=== PATIENT | male | born 1945 | race Caucasian/White ===

== ENCOUNTER 2017-02-01 20:13 | Emergency (ER) | payer MEDICARE, OTHER ==
[~2017-02-01] VITALS: Ht 177.8 cm; Wt 216.0 kg
[~2017-02-01 20:13] MED LIST: 1-ME1LIQ PO; AMIT10 PO; ASPI-94 PO; ATOR20TA42 PO; DUONI NEB; FLUO-1 PO; FURO20TA PO; GABA300 PO; LANTUS2P SC; NOVOINJ SQ; OMEP20TA PO; TAMS0.4C67 PO; WAL-10TA2 PO
[2017-02-01 20:37] VITALS: BP 103/65; PULSE 90; RESP 18; TEMP 99; O2SAT 98
[2017-02-01] MEDS ORDERED: DIAZ5TAB PO (20:59)
[2017-02-01] MEDS ORDERED: ALBU.5I NEB (20:59)
[2017-02-01] MEDS ORDERED: SOLOSTAR SQ (20:59)
[2017-02-01] MEDS ORDERED: ATOR1TAB18 PO (20:59)
[2017-02-01] MEDS ORDERED: GABA600T PO (20:59)
[2017-02-01] MEDS ORDERED: AMLO10TA2 PO (20:59)
[2017-02-01] MEDS ORDERED: NOVOINJ3 SQ (20:59)
[2017-02-01] MEDS ORDERED: GABA100C4 PO (20:59)
[2017-02-01] MEDS ORDERED: [UNRECOGNIZED DRUG - CODE] TOPICAL (20:59)
[2017-02-01] MEDS ORDERED: TAMS0.4C4 PO (20:59)
[2017-02-01] MEDS ORDERED: FLUO40CA PO (20:59)
[2017-02-01] MEDS ORDERED: FURO1TAB60 PO (20:59)
[2017-02-01] MEDS ORDERED: AMIT50TA3 PO (20:59)
[2017-02-01] MEDS ORDERED: ASPI1TAB69 PO (20:59)
[2017-02-01] MEDS ORDERED: OMEP20TA PO (20:59)
--- NOTE | 2017-02-01 21:21 | PD ---
HPI Chief Complaint: Cold / Flu Symptoms Time Seen by Provider: 21:16 Travel History International Travel<30 days: No Contact w/Intl Traveler<30days: No Traveled to known affect area: No History of Present Illness HPI Patient is a 71-year-old male presenting to the emergency department for evaluation of cough, nasal congestion. Patient states his symptoms started on Monday, he reports a history of COPD, asbestosis, pulmonary nodules. He denies any fever, chills, nausea, vomiting, chest pain, shortness of breath. He also reports an injury to his left fifth finger that occurred 2 days ago. Patient states he cut himself and was wondering if he needed stitches. 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) Cardiovascular Problems: Yes (HX OF CHF 2008) High Cholesterol: Yes Congestive Heart Failure: Yes COPD: Yes Cerebrovascular Accident: No Diabetes: Yes (TYPE II) Patient Takes Glucophage: No Diminished Hearing: Yes (HEARING AID BOTH EARS.) Endocrine: Yes Gastrointestinal Disorders: Yes GERD: Yes Genitourinary: Yes Headaches: Yes Hiatal Hernia: No Hypertension: Yes Immune Disorder: No Medical other: Yes (GERD, LOWER BACK PROBLEMS, ARTHRITIS,DIVERTICULITIS) Musculoskeletal: Yes Neurologic: Yes Psychiatric: No Reproductive: No Respiratory: Yes (COPD) Immunizations Current: Yes Migraines: No Seizures: No Thyroid Disease: No Tetanus Vaccination: < 5 Years Influenza Vaccination: Yes Past Surgical History Cholecystectomy: Yes Eye Surgery: Yes (BILATERAL CATARACT SURGERY) Genitourinary Surgery: Yes (R NEPHRECTOMY FOR RENAL CELL CA) Thoracic Surgery: Yes (LUNG NODULES REMOVED BIA LUNGS) Other Surgery: Yes (LOWER LUMBAR SURGERY) Social History Alcohol Use: No (QUIT 1971) Tobacco Use: No (QUIT 1997) Substance Use: No Allergies-Medications (Allergen,Severity, Reaction): Coded Allergies: Phenergan (Verified Allergy, Severe, "CODED", 02/01/17) Oxycodone (Verified Adverse Reaction, Severe, CONFUSION, 02/01/17) Morphine (Verified Adverse Reaction, Intermediate, NAUSEA, 02/01/17) Reported Meds & Prescriptions Reported Meds & Active Scripts Active Reported Tamsulosin (Tamsulosin HCl) 0.4 Mg Cap 0.4 Mg PO HS Diazepam 5 Mg Tab 5 Mg PO HS PRN Urea Topical (Urea) 40 % Alma Delia 20 % TOPICAL BID Omeprazole 20 Mg Tab 20 Mg PO DAILY [Solostar] 45 Units SQ BID Novolog Flexpen Inj (Insulin Aspart) 300 Unit/3 Ml Pen 7 Units SQ TID Gabapentin 600 Mg Tab 600 Mg PO BID Gabapentin 100 Mg Cap 100 Mg PO BID Lasix (Furosemide) 40 Mg Tab 40 Mg PO DAILY Fluoxetine (Fluoxetine HCl) 40 Mg Cap 40 Cap PO DAILY Atorvastatin (Atorvastatin Calcium) 80 Mg Tab 80 Mg PO HS Aspirin 81 Mg Tabdr 81 Mg PO DAILY Amlodipine (Amlodipine Besylate) 10 Mg Tab 10 Mg PO DAILY Amitriptyline (Amitriptyline HCl) 50 Mg Tab 50 Mg PO HS Albuterol Neb (Albuterol Sulfate) 2.5 Mg/0.5 Ml Neb 2.5 Mg NEB Q6HR NEB PRN Note: The Albuterol Sulfate Inhalation Solution is concentrated and must be diluted. Read complete instructions carefully before using. Review of Systems Except as stated in HPI: all other systems reviewed are Neg General / Constitutional: No: Fever, Chills HENT: No: Headaches Cardiovascular: No: Chest Pain or Discomfort Respiratory: Positive: Cough, No: Shortness of Breath, Wheezing Gastrointestinal: No: Nausea, Abdominal Pain Genitourinary: No: Dysuria Musculoskeletal: No: Myalgias Skin: Positive Other (superficial laceration) Physical Exam Narrative GENERAL: Well-developed, well-nourished, alert elderly gentleman. Resting comfortably in no acute distress. SKIN: Focused skin assessment warm/dry. Superficial skin avulsion dorsal aspect of the right fifth finger HEAD: Atraumatic. Normocephalic. EYES: Pupils equal and round. No scleral icterus. No injection or drainage. ENT: No nasal bleeding or discharge. Mucous membranes pink and moist. NECK: Trachea midline. No JVD. CARDIOVASCULAR: Regular rate and rhythm. No murmur appreciated. RESPIRATORY: No accessory muscle use. Clear to auscultation. Breath sounds equal bilaterally. GASTROINTESTINAL: Abdomen soft, non-tender, nondistended. Hepatic and splenic margins not palpable. MUSCULOSKELETAL: No obvious deformities. No clubbing. No cyanosis. No edema. NEUROLOGICAL: Awake and alert. No obvious cranial nerve deficits. Motor grossly within normal limits. Normal speech. PSYCHIATRIC: Appropriate mood and affect; insight and judgment normal. Data Data Last Documented VS Vital Signs Date Time Temp Pulse Resp B/P Pulse Ox O2 Delivery O2 Flow Rate FiO2 02/01/17 20:46 Room Air 02/01/17 20:37 99.0 90 18 103/65 98 Orders Chest, Pa & Lat (02/01/17 ) [facility] Medical Decision Making Medical Screen Exam Complete: Yes Emergency Medical Condition: Yes Interpretation(s) Vital Signs Date Time Temp Pulse Resp B/P Pulse Ox O2 Delivery O2 Flow Rate FiO2 02/01/17 20:46 Room Air 02/01/17 20:37 99.0 90 18 103/65 98 Differential Diagnosis Pneumonia versus bronchitis versus viral URI versus other Narrative Course Patient is a 71-year-old male presenting to the emergency room for evaluation of cough, nasal congestion. Patient's past medical history significant for COPD , asbestosis. Chest x-ray ordered and pending. Patient's vital signs are stable, he is well oxygenated on room air. No abnormal breath sounds are noted. Chest x-ray shows blunting of the left costophrenic recess consistent with pleural thickening and/or tiny pleural effusion. Patient will be placed on antibiotics, he is encouraged to continue his inhaler at home. Discussed case with my attending physician. He is encouraged to follow-up with his primary care provider. Additionally patient was encouraged to return to emergency department for any new or worsening symptoms. Patient verbalized understanding of these instructions. Patient is stable for discharge. Diagnosis Primary Impression: Pleural thickening Additional Impressions: Cough COPD exacerbation Referrals: Primary Care Physician 2 days Patient Instructions: Acute Cough (GEN), General Instructions Additional Instructions: Follow-up with your primary doctor Take medications as directed Continue albuterol inhaler at home as previously prescribed Return to emergency department for any new or worsening symptoms Med/Other Pt SpecificInfo: Prescription(s) given Scripts Azithromycin 250 Mg [id number] Mg PO DIRECTED #6 TAB Ref 0 Take 2 tabs (500 mg) on day 1 then 1 tab daily x 4 days. Prov:Lupis Gilman 02/01/17 Disposition: 01 DISCHARGE HOME Condition: Stable Lupis Gilman Feb 01, 2017 21:21
--- NOTE | 2017-02-01 21:42 | RADHPO ---
EXAM DATE/TIME: 02/01/2017 21:22 [facility] COMPARISON: No previous studies available for comparison. INDICATIONS : Cough, chest congestion, shortness of breath for 3 days MEDICAL HISTORY : Hypertension. SURGICAL HISTORY : Nodules removed from left lung ENCOUNTER: Initial ACUITY: 3 days PAIN SCORE: 0/10 LOCATION: Bilateral chest FINDINGS: There is blunting of the left costophrenic recess consistent with small pleural effusion and/or pleur al thickening. The heart is normal. The pulmonary vascular pattern is normal. The right lung is cl ear. CONCLUSION: 1. Blunting of the left costophrenic recess consistent with pleural thickening and/or tiny pleural e ffusion. Roderick Zaragoza MD on February 01, 2017 at 21:37 Board Certified Radiologist. This report was verified electronically.
[2017-02-01] MEDS ORDERED: AZIT250T3 PO (22:21)
== END 2017-02-01 22:43 | disposition home or self-care (01) ==
LOC: PHEFT 20:13
DX: J92.9 Pleural plaque without asbestos (principal); J44.1 Chronic obstructive pulmonary disease with (acute) exacerbation; I50.9 Heart failure, unspecified; E11.9 Type 2 diabetes mellitus without complications; K21.9 Gastro-esophageal reflux disease without esophagitis; I10 Essential (primary) hypertension; M19.90 Unspecified osteoarthritis, unspecified site; Z87.891 Personal history of nicotine dependence; Z79.4 Long term (current) use of insulin
CPT/HCPCS: 71020; 99283

== ENCOUNTER 2017-05-01 20:24 | Emergency (ER) | payer MEDICARE, OTHER ==
[~2017-05-01] VITALS: Ht 177.8 cm; Wt 90.6 kg
[~2017-05-01 20:24] MED LIST changes: -1-ME1LIQ PO; +ALBU.5I NEB; -AMIT10 PO; +AMIT50TA3 PO; +AMLO10TA2 PO; -ASPI-94 PO; +ASPI1TAB69 PO; +ATOR1TAB18 PO; -ATOR20TA42 PO; +AZIT250T3 PO; +DIAZ5TAB PO; -DUONI NEB; -FLUO-1 PO; +FLUO40CA PO; +FURO1TAB60 PO; -FURO20TA PO; +GABA100C4 PO; -GABA300 PO; +GABA600T PO; -LANTUS2P SC; -NOVOINJ SQ; +NOVOINJ3 SQ; +SOLOSTAR SQ; +TAMS0.4C4 PO; -TAMS0.4C67 PO; -WAL-10TA2 PO; +[UNRECOGNIZED DRUG - CODE] TOPICAL
[2017-05-01 20:30] VITALS: BP 136/67; PULSE 78; RESP 18; TEMP 97.9; O2SAT 97
[2017-05-01] MEDS ORDERED: GLIP10TA6 PO (20:43)
[2017-05-01] MEDS ORDERED: METF1000 PO (20:43)
--- NOTE | 2017-05-01 21:51 | RADRPT ---
EXAM DATE/TIME: 05/01/2017 21:24 [facility] COMPARISON: No previous studies available for comparison. INDICATIONS : Trauma, fall. MEDICAL HISTORY : None. SURGICAL HISTORY : Total knee replacement, right. ENCOUNTER: Initial ACUITY: 1 day PAIN SCORE: 5/10 LOCATION: Right knee. FINDINGS: The patient is status post arthroplasty. The femoral and tibial components are intact and in normal a lignment. There are postoperative changes involving the patella. There is no acute fracture or malali gnment. CONCLUSION: Negative trauma study. Freeman Devlin MD on May 01, 2017 at 21:48 Board Certified Radiologist. This report was verified electronically.
--- NOTE | 2017-05-01 22:00 | PD ---
HPI Chief Complaint: Fall Time Seen by Provider: 20:50 Travel History International Travel<30 days: No Contact w/Intl Traveler<30days: No Traveled to known affect area: No History of Present Illness HPI 72-year-old male presents emergency department for evaluation of right shoulder and right knee pain status post fall yesterday. Patient reports she tripped over some uneven ground while outside falling forward onto her right flexed knee. He reports his right arm was extended outwards when he fell causing pain within the right shoulder. Patient has a history of chronic right shoulder pain and rotator cuff injury. He denies head injury or loss of consciousness. Patient is not anticoagulated. Patient denies headache, visual changes, chest pain, shortness breath, abdominal pain. Patient reports pain only within the right shoulder and right knee which is constant, worse with movement, relieved with rest, severity 5 out of 10. 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) Cardiovascular Problems: Yes (HX OF CHF 2008) High Cholesterol: Yes Congestive Heart Failure: Yes COPD: Yes Cerebrovascular Accident: Yes Diabetes: Yes Patient Takes Glucophage: Yes Diminished Hearing: Yes (HEARING AID BOTH EARS.) Endocrine: Yes Gastrointestinal Disorders: Yes GERD: Yes Genitourinary: Yes Headaches: Yes Hiatal Hernia: No Hypertension: Yes Immune Disorder: No Medical other: Yes (GERD, LOWER BACK PROBLEMS, ARTHRITIS,DIVERTICULITIS) Musculoskeletal: Yes Neurologic: Yes Psychiatric: No Reproductive: No Respiratory: Yes (COPD) Immunizations Current: Yes Migraines: No Seizures: No Thyroid Disease: No Tetanus Vaccination: < 5 Years Influenza Vaccination: Yes Past Surgical History Cholecystectomy: Yes Eye Surgery: Yes (BILATERAL CATARACT SURGERY) Genitourinary Surgery: Yes (R NEPHRECTOMY FOR RENAL CELL CA) Thoracic Surgery: Yes (LUNG NODULES REMOVED BIA LUNGS) Other Surgery: Yes (LOWER LUMBAR SURGERY) Social History Alcohol Use: No (QUIT 1971) Tobacco Use: No (QUIT 1997) Substance Use: No Allergies-Medications (Allergen,Severity, Reaction): Coded Allergies: Phenergan (Verified Allergy, Severe, "CODED", 05/01/17) Oxycodone (Verified Adverse Reaction, Severe, CONFUSION, 05/01/17) Morphine (Verified Adverse Reaction, Intermediate, NAUSEA, 05/01/17) Reported Meds & Prescriptions Reported Meds & Active Scripts Active Reported Metformin (Metformin HCl) 1,000 Mg Tab 1,000 Mg PO DAILY With a meal Glipizide 10 Mg Tab 10 Mg PO BIDAC Take 30 minutes before a meal Omeprazole 20 Mg Tab 20 Mg PO DAILY Gabapentin 600 Mg Tab 600 Mg PO BID Gabapentin 100 Mg Cap 100 Mg PO BID Lasix (Furosemide) 40 Mg Tab 40 Mg PO DAILY Fluoxetine (Fluoxetine HCl) 40 Mg Cap 40 Cap PO DAILY Atorvastatin (Atorvastatin Calcium) 80 Mg Tab 80 Mg PO HS Amlodipine (Amlodipine Besylate) 10 Mg Tab 10 Mg PO DAILY Amitriptyline (Amitriptyline HCl) 50 Mg Tab 50 Mg PO HS Albuterol Neb (Albuterol Sulfate) 2.5 Mg/0.5 Ml Neb 2.5 Mg NEB Q6HR NEB PRN Note: The Albuterol Sulfate Inhalation Solution is concentrated and must be diluted. Read complete instructions carefully before using. Physical Exam Narrative GENERAL: Alert, well-appearing, well-nourished elderly male SKIN: Focused skin assessment warm/dry. No ecchymosis. Small abrasion to the right anterior knee HEAD: Atraumatic. Normocephalic. EYES: Pupils equal and round. No scleral icterus. No injection or drainage. ENT: No nasal bleeding or discharge. Mucous membranes pink and moist. NECK: Trachea midline. No JVD. CARDIOVASCULAR: Regular rate and rhythm. No murmur appreciated. RESPIRATORY: No accessory muscle use. Clear to auscultation. Breath sounds equal bilaterally. GASTROINTESTINAL: Abdomen soft, non-tender, nondistended. Hepatic and splenic margins not palpable. MUSCULOSKELETAL: No obvious deformities. No clubbing. No cyanosis. No edema. Right knee: Point tenderness to the anterior aspect, no joint effusion. Joint is stable. Right shoulder: Joint tender in the posterior aspect. No deformity. Positive Neer's test. Extremities neurovascularly intact. NEUROLOGICAL: Awake and alert. No obvious cranial nerve deficits. Motor grossly within normal limits. Normal speech. PSYCHIATRIC: Appropriate mood and affect; insight and judgment normal. Data Data Last Documented VS Vital Signs Date Time Temp Pulse Resp B/P Pulse Ox O2 Delivery O2 Flow Rate FiO2 05/01/17 20:30 97.9 78 18 136/67 97 Orders Shoulder, Complete (>2vws) (05/01/17 ) Knee, Complete (4vws) (05/01/17 ) ^ Sling (05/01/17 22:41) [facility] Medical Decision Making Medical Screen Exam Complete: Yes Emergency Medical Condition: Yes Differential Diagnosis Right shoulder pain- rotator cuff injury versus contusion versus versus fracture , right knee pain-contusion versus fracture Narrative Course 72-year-old male presents emergency department for evaluation of right shoulder pain and knee pain status post fall yesterday. He denies head injury or loss of consciousness. On exam patient has point tenderness of the anterior aspect of the knee and posterior aspect of the shoulder. X-rays pending Right shoulder x-ray: Negative for fracture or dislocation Right knee x-ray: Negative for fracture Diagnostic findings discussed with patient. Right arm placed in sling for comfort. Patient agrees to follow-up with with Genesis schroeder this week. Diagnosis Primary Impression: Right shoulder pain Qualified Code: M25.511 - Acute pain of right shoulder Additional Impression: Contusion of right knee Qualified Code: S80.01XA - Contusion of right knee, initial encounter Referrals: Orthopedist Additional Instructions: With a sling as needed for comfort. Take [id number] Motrin and/or Tylenol as needed for pain. Ice and elevate right lower extremity. Disposition: 01 DISCHARGE HOME Condition: Stable Meera Hernandez May 01, 2017 22:00
--- NOTE | 2017-05-01 22:32 | RADRPT ---
EXAM DATE/TIME: 05/01/2017 21:20 [facility] COMPARISON: No previous studies available for comparison. INDICATIONS : Trauma, fall. MEDICAL HISTORY : None. SURGICAL HISTORY : None. ENCOUNTER: Initial ACUITY: 1 day PAIN SCORE: 4/10 LOCATION: Right shoulder. FINDINGS: Multiple view examination of the right shoulder demonstrates no evidence of fracture or dislocation. The glenohumeral and acromioclavicular joints are maintained. There is normal range of motion betwe en internal and external rotation. Bony mineralization is normal. CONCLUSION: Negative trauma study. Freeman Devlin MD on May 01, 2017 at 22:28 Board Certified Radiologist. This report was verified electronically.
== END 2017-05-01 22:45 | disposition home or self-care (01) ==
LOC: PHEFT 20:24
DX: M25.511 Pain in right shoulder (principal); S80.01XA Contusion of right knee, initial encounter; W01.0XXA Fall on same level from slipping, tripping and stumbling without subsequent striking against object, initial encounter; I50.9 Heart failure, unspecified; E78.00 Pure hypercholesterolemia, unspecified; E11.9 Type 2 diabetes mellitus without complications; J44.9 Chronic obstructive pulmonary disease, unspecified; Z86.73 Personal history of transient ischemic attack (TIA), and cerebral infarction without residual deficits; I10 Essential (primary) hypertension; Z85.528 Personal history of other malignant neoplasm of kidney
CPT/HCPCS: 73030; 73564; 99284

== ENCOUNTER → 2017-09-21 | Outpatient (CLI) | payer MEDICARE, OTHER ==
[~2017-09-21] MED LIST changes: -ASPI1TAB69 PO; -ATOR1TAB18 PO; +ATOR80TA45 PO; -AZIT250T3 PO; -DIAZ5TAB PO; +GLIP10TA6 PO; +METF1000 PO; -NOVOINJ3 SQ; -OMEP20TA PO; +OMEP20TA93 PO; -SOLOSTAR SQ; -TAMS0.4C4 PO; -[UNRECOGNIZED DRUG - CODE] TOPICAL
[2017-09-21 15:10] LABS: AUTOMATED NEUTROPHIL # 3.5 TH/MM3 (1.8-7.7); BASOPHIL % 0.5 % (0.0-2.0); EOSINOPHIL # 0.2 TH/MM3 (0-0.4); EOSINOPHIL % 3.1 % (0.0-4.0); HEMATOCRIT 38.1 % (39.0-51.0); HEMO FLAGS DIFF FINAL; LYMPH % 29.9 % (9.0-44.0); LYMPHOCYTE # 1.8 TH/MM3 (1.0-4.8); MEAN CORPUSCULAR HEMOGLOBIN 29.3 PG (27.0-34.0); MEAN CORPUSCULAR HGB CONC 34.1 % (32.0-36.0); MONO % 8.5 % (0.0-8.0); PLATELET COUNT 195 TH/MM3 (150-450); RED BLOOD COUNT 4.44 MIL/MM3 (4.50-5.90); RED CELL DISTRIBUTION WIDTH 13.4 % (11.6-17.2); WHITE BLOOD COUNT 6.1 TH/MM3 (4.0-11.0)
[2017-09-21 15:28] LABS: BICARBONATE 25.4 MEQ/L (21.0-32.0)
--- NOTE | 2017-09-22 17:58 | EKG ---
Date Performed: 09/21/2017 Time Performed: 15:35:34 PTAGE: 72 years EKG: Sinus rhythm WITH FIRST DEGREE AV BLOCK MODERATE INTRAVENTRICULAR CONDUCTION DELAY MODERATE ST DEPRESSION ABNORMA L ECG Compared to PREVIOUS TRACING , NM interval is slightly more prolonged. PREVIOUS TRACIN01/11/2014 0 1.38 DOCTOR: Jacob Chavez Interpretating Date/Time 09/22/2017 17:56:58
== END ==
LOC: CLAB 14:38
PROVIDERS: ATTEND Orthopaedic Surgery Orthopaedic Surgery of the Spine
DX: Z01.812 Encounter for preprocedural laboratory examination (principal); Z01.810 Encounter for preprocedural cardiovascular examination; G56.01 Carpal tunnel syndrome, right upper limb
CPT/HCPCS: 36415; 80048; 85025; 93005

== ENCOUNTER 2018-04-17 11:27 | Day surgery (SDC) | payer MEDICARE, OTHER ==
[2018-04-17] MEDS ORDERED: POVIDONE IODINE 5% (ANTISEPSIS KIT) 4 APPLICATIONS EACH NARE SCH (12:00)
[2018-04-17] MEDS ORDERED: MUPIROCIN 2% OINT 1 APPLIC/GM SYR NASAL SCH (12:00)
[2018-04-17] MEDS ORDERED: CHLORHEXIDINE GLUCONATE 2 % 1 PACK (2 CLOTHS) TOPICAL SCH (12:00)
[2018-04-17] MEDS ORDERED: ceFAZolin 2 GM PREMIX 50 ML IV SCH (12:00)
[2018-04-17] MEDS ORDERED: VANCOMYCIN 1000 MG/NS 250 ML IV SCH ×2 (12:00)
[2018-04-17] MEDS ORDERED: MIDAZOLAM HCL 5 MG/ML VIAL (1 ML) ONE (12:05)
[2018-04-17] MEDS ORDERED: ECASA81 PO (12:06)
[2018-04-17] MEDS ORDERED: TAMS0.4C4 PO (12:06)
[2018-04-17] MEDS ORDERED: GLUC4CHW CHEW (12:06)
--- NOTE | 2018-04-17 15:00 | MR ---
cc: Radha Ramirez MD DATE: 04/17/2018 INDICATION: Syncope. PROCEDURE PERFORMED: 1. Placement of a Medtronic MRI compatible loop monitor. 2. Moderate sedation. EQUIPMENT USED: Medtronic Reveal LINQ MRI compatible loop monitor, serial number [id number]. MEDICATION: Versed IV, fentanyl IV, Ancef IV. DESCRIPTION OF THE PROCEDURE: After the patient was sedated, left chest was prepped and draped in usual sterile manner. Local anesthesia was applied. Medtronic Reveal LINQ MRI compatible monitor was placed without difficulties. R-wave was 0.78 millivolts. ASSESSMENT: Successful placement of Medtronic Reveal LINQ MRI compatible loop monitor. DISPOSITION: Mr. Ayon will continue his current medical program. We will initiate long-term monitoring of his device. I will see him back in followup in our office after discharge. Radha Ramirez MD OQ/TL , 02:26 PM , 03:00 PM MTDD
== END 2018-04-17 15:23 | disposition home or self-care (01) ==
LOC: HDIC 11:27 → HDOC 11:27
PROVIDERS: ATTEND Internal Medicine Interventional Cardiology
DX: R55 Syncope and collapse (principal); I20.9 Angina pectoris, unspecified; I11.0 Hypertensive heart disease with heart failure; I50.9 Heart failure, unspecified; E78.5 Hyperlipidemia, unspecified; K21.9 Gastro-esophageal reflux disease without esophagitis; N28.9 Disorder of kidney and ureter, unspecified; I63.9 Cerebral infarction, unspecified; J44.9 Chronic obstructive pulmonary disease, unspecified
CPT/HCPCS: 33282; 99152; C1764; J2250; J3010

== ENCOUNTER 2018-04-28 17:07 | Inpatient (IN) | payer MEDICARE, OTHER ==
[~2018-04-28] VITALS: Ht 177.8 cm; Wt 95.0 kg
[~2018-04-28 17:07] MED LIST changes: +ECASA81 PO; +GLUC4CHW CHEW; +TAMS0.4C4 PO
[2018-04-28 17:23] VITALS: BP 143/69; PULSE 75; RESP 18; TEMP 98.7; O2SAT 98
--- NOTE | 2018-04-28 17:26 | PD ---
HPI Chief Complaint: Dizziness Time Seen by Provider: 17:23 Travel History International Travel<30 days: No Contact w/Intl Traveler<30days: No Traveled to known affect area: No History of Present Illness HPI 73-year-old male with history of CHF, hypertension, COPD, chronic kidney disease , diabetes, presents emergency department for evaluation following a syncopal episode. Patient states that he was walking in a store today when his body begins to shake and he passes out. He then wakes up on the ground. Today he was assisted to the ground by people in the store. He states he had a very similar episode yesterday. Patient states that he has been having these episodes for quite some time, but more frequently over the last couple of weeks. He tells me yesterday he did strike his head but did not seek evaluation. He has been seen by Dr. white, wore a Holter monitor, and had a loop recorder placed 1 week ago. He tells me that he has been told to put the device over the loop recorder site when these events happen, however he has a difficult time doing this because he feels like he loses control over his body. Patient states he has no chest pain preceding this. He reports no nausea or vomiting. He has no focal deficits or weakness. Patient has no other symptoms to report at this time. 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) Cardiovascular Problems: Yes (HX OF CHF 2008) High Cholesterol: Yes Congestive Heart Failure: Yes COPD: Yes Cerebrovascular Accident: Yes Diabetes: Yes Diminished Hearing: Yes (HEARING AID BOTH EARS.) Endocrine: Yes Gastrointestinal Disorders: Yes GERD: Yes Genitourinary: Yes Headaches: Yes Hiatal Hernia: No Hypertension: Yes Immune Disorder: No Musculoskeletal: Yes Neurologic: Yes Psychiatric: No Reproductive: No Respiratory: Yes (COPD) Immunizations Current: Yes Migraines: No Seizures: No Thyroid Disease: No Past Surgical History Cholecystectomy: Yes Eye Surgery: Yes (BILATERAL CATARACT SURGERY) Genitourinary Surgery: Yes (R NEPHRECTOMY FOR RENAL CELL CA) Thoracic Surgery: Yes (LUNG NODULES REMOVED BIA LUNGS) Other Surgery: Yes (LOWER LUMBAR SURGERY) Social History Alcohol Use: No (QUIT 1971) Tobacco Use: No (QUIT 1997) Substance Use: No Allergies-Medications (Allergen,Severity, Reaction): Coded Allergies: promethazine (Unverified Allergy, Severe, "CODED", 04/28/18) oxycodone (Unverified Adverse Reaction, Severe, CONFUSION, 04/28/18) morphine (Unverified Adverse Reaction, Intermediate, NAUSEA, 04/28/18) Reported Meds & Prescriptions Reported Meds & Active Scripts Active Reported Jardiance (Empagliflozin) 25 Mg Tab 25 Mg PO DAILY Ventolin Hfa 18 GM Inh (Albuterol Sulfate) 90 Mcg/Act Aer 2 Puff INH Q6H PRN Tamsulosin (Tamsulosin HCl) 0.4 Mg Cap 0.8 Mg PO HS Glucose (Dextrose) 4 Gm Chew 4 Gm CHEW DIRECTED Aspirin DR (Aspirin) 81 Mg Tabdr 81 Mg PO DAILY Metformin (Metformin HCl) 1,000 Mg Tab 1,000 Mg PO DAILY With a meal Glipizide 10 Mg Tab 10 Mg PO BIDAC Take 30 minutes before a meal Omeprazole 20 Mg Tab 20 Mg PO DAILY Gabapentin 600 Mg Tab 600 Mg PO BID Gabapentin 100 Mg Cap 100 Mg PO BID Lasix (Furosemide) 40 Mg Tab 40 Mg PO DAILY Fluoxetine (Fluoxetine HCl) 40 Mg Cap 40 Cap PO DAILY Atorvastatin (Atorvastatin Calcium) 80 Mg Tab 80 Mg PO HS Amlodipine (Amlodipine Besylate) 10 Mg Tab 10 Mg PO DAILY Amitriptyline (Amitriptyline HCl) 50 Mg Tab 50 Mg PO HS Review of Systems Except as stated in HPI: all other systems reviewed are Neg Physical Exam Narrative GENERAL: Very pleasant, elderly male patient, hard of hearing, appears nontoxic and without distress. SKIN: Focused skin assessment warm/dry. Steri-Strip dressing in place over the left anterior chest. No erythema or edema. HEAD: Atraumatic. Normocephalic. EYES: Pupils equal and round. No scleral icterus. No injection or drainage. ENT: No nasal bleeding or discharge. Mucous membranes pink and moist. NECK: Trachea midline. No JVD. CARDIOVASCULAR: Regular rate and rhythm. 2/6 systolic murmur appreciated. RESPIRATORY: No accessory muscle use. Clear to auscultation. Breath sounds equal bilaterally. GASTROINTESTINAL: Abdomen soft, non-tender, nondistended. Hepatic and splenic margins not palpable. MUSCULOSKELETAL: No obvious deformities. No clubbing. No cyanosis. No edema. NEUROLOGICAL: Awake and alert. No obvious cranial nerve deficits. Motor grossly within normal limits. Normal speech. PSYCHIATRIC: Appropriate mood and affect; insight and judgment normal. Data Data Last Documented VS Vital Signs Date Time Temp Pulse Resp B/P (MAP) Pulse Ox O2 Delivery O2 Flow Rate FiO2 04/28/18 19:11 74 17 98 Room Air 04/28/18 19:10 111/84 (93) 04/28/18 17:23 98.7 Orders Orders Electrocardiogram (04/28/18 17:37) Complete Blood Count With Diff (04/28/18 17:37) Comprehensive Metabolic Panel (04/28/18 17:37) Magnesium (Mg) (04/28/18 17:37) Ckmb (Isoenzyme) Profile (04/28/18 17:37) Troponin I (04/28/18 17:37) Act Partial Throm Time (Ptt) (04/28/18 17:37) Prothrombin Time / Inr (Pt) (04/28/18 17:37) Urinalysis - C+S If Indicated (04/28/18 17:37) Chest, Single Ap (04/28/18 17:37) Ct Brain W/O Iv Contrast(Rout) (04/28/18 17:37) Ct Cerv Spine W/O Contrast (04/28/18 17:37) Ecg Monitoring (04/28/18 17:37) Iv Access Insert/Monitor (04/28/18 17:37) Oximetry (04/28/18 17:37) Sodium Chloride 0.9% Flush (Ns Flush) (04/28/18 17:45) CKMB (04/28/18 17:25) CKMB% (04/28/18 17:25) Admit Order (Ed Use Only) (04/28/18 21:34) Consult Cardiology (04/28/18 ) Labs Laboratory Tests Test 04/28/18 17:25 04/28/18 19:50 White Blood Count 6.8 TH/MM3 Red Blood Count 4.61 MIL/MM3 Hemoglobin 13.1 GM/DL Hematocrit 38.8 % Mean Corpuscular Volume 84.1 FL Mean Corpuscular Hemoglobin 28.3 PG Mean Corpuscular Hemoglobin Concent 33.7 % Red Cell Distribution Width 13.8 % Platelet Count 218 TH/MM3 Mean Platelet Volume 9.1 FL Neutrophils (%) (Auto) 69.3 % Lymphocytes (%) (Auto) 20.1 % Monocytes (%) (Auto) 8.8 % Eosinophils (%) (Auto) 1.3 % Basophils (%) (Auto) 0.5 % Neutrophils # (Auto) 4.7 TH/MM3 Lymphocytes # (Auto) 1.4 TH/MM3 Monocytes # (Auto) 0.6 TH/MM3 Eosinophils # (Auto) 0.1 TH/MM3 Basophils # (Auto) 0.0 TH/MM3 CBC Comment DIFF FINAL Differential Comment Prothrombin Time 10.8 SEC Prothromb Time International Ratio 1.1 RATIO Activated Partial Thromboplast Time 24.9 SEC Blood Urea Nitrogen 25 MG/DL Creatinine 1.82 MG/DL Random Glucose 149 MG/DL Total Protein 7.1 GM/DL Albumin 4.1 GM/DL Calcium Level 9.2 MG/DL Magnesium Level 2.3 MG/DL Alkaline Phosphatase 92 U/L Aspartate Amino Transf (AST/SGOT) 22 U/L Alanine Aminotransferase (ALT/SGPT) 28 U/L Total Bilirubin 0.5 MG/DL Sodium Level 137 MEQ/L Potassium Level 3.7 MEQ/L Chloride Level 100 MEQ/L Carbon Dioxide Level 25.6 MEQ/L Anion Gap 11 MEQ/L Estimat Glomerular Filtration Rate 36 ML/MIN Total Creatine Kinase 120 U/L Creatine Kinase MB 1.8 NG/ML Troponin I LESS THAN 0.02 NG/ML Urine Color YELLOW Urine Turbidity CLEAR Urine pH 6.0 Urine Specific [place] 1.008 Urine Protein NEG mg/dL Urine Glucose (UA) >=500 mg/dL Urine Ketones NEG mg/dL Urine Occult Blood NEG Urine Nitrite NEG Urine Bilirubin NEG Urine Urobilinogen LESS THAN 2 mg/dL Urine Leukocyte Esterase NEG Urine WBC LESS THAN 1 /hpf Urine Squamous Epithelial Cells <1 /hpf Microscopic Urinalysis Comment CULT NOT INDICATED MDM Medical Decision Making Medical Screen Exam Complete: Yes Emergency Medical Condition: Yes Medical Record Reviewed: Yes Differential Diagnosis Syncope versus near syncope versus electrolyte abnormality versus intracranial etiology versus arrhythmia Narrative Course 73-year-old male presents emergency department for evaluation following a syncopal episode. Patient reports several syncopal episodes over an extended amount of time however they have been happening more frequently. He has no obvious trauma. Laboratory Tests Test 04/28/18 17:25 04/28/18 19:50 White Blood Count 6.8 TH/MM3 Red Blood Count 4.61 MIL/MM3 Hemoglobin 13.1 GM/DL Hematocrit 38.8 % Mean Corpuscular Volume 84.1 FL Mean Corpuscular Hemoglobin 28.3 PG Mean Corpuscular Hemoglobin Concent 33.7 % Red Cell Distribution Width 13.8 % Platelet Count 218 TH/MM3 Mean Platelet Volume 9.1 FL Neutrophils (%) (Auto) 69.3 % Lymphocytes (%) (Auto) 20.1 % Monocytes (%) (Auto) 8.8 % Eosinophils (%) (Auto) 1.3 % Basophils (%) (Auto) 0.5 % Neutrophils # (Auto) 4.7 TH/MM3 Lymphocytes # (Auto) 1.4 TH/MM3 Monocytes # (Auto) 0.6 TH/MM3 Eosinophils # (Auto) 0.1 TH/MM3 Basophils # (Auto) 0.0 TH/MM3 CBC Comment DIFF FINAL Differential Comment Prothrombin Time 10.8 SEC Prothromb Time International Ratio 1.1 RATIO Activated Partial Thromboplast Time 24.9 SEC Blood Urea Nitrogen 25 MG/DL Creatinine 1.82 MG/DL Random Glucose 149 MG/DL Total Protein 7.1 GM/DL Albumin 4.1 GM/DL Calcium Level 9.2 MG/DL Magnesium Level 2.3 MG/DL Alkaline Phosphatase 92 U/L Aspartate Amino Transf (AST/SGOT) 22 U/L Alanine Aminotransferase (ALT/SGPT) 28 U/L Total Bilirubin 0.5 MG/DL Sodium Level 137 MEQ/L Potassium Level 3.7 MEQ/L Chloride Level 100 MEQ/L Carbon Dioxide Level 25.6 MEQ/L Anion Gap 11 MEQ/L Estimat Glomerular Filtration Rate 36 ML/MIN Total Creatine Kinase 120 U/L Creatine Kinase MB 1.8 NG/ML Troponin I LESS THAN 0.02 NG/ML Urine Color YELLOW Urine Turbidity CLEAR Urine pH 6.0 Urine Specific [place] 1.008 Urine Protein NEG mg/dL Urine Glucose (UA) >=500 mg/dL Urine Ketones NEG mg/dL Urine Occult Blood NEG Urine Nitrite NEG Urine Bilirubin NEG Urine Urobilinogen LESS THAN 2 mg/dL Urine Leukocyte Esterase NEG Urine WBC LESS THAN 1 /hpf Urine Squamous Epithelial Cells <1 /hpf Microscopic Urinalysis Comment CULT NOT INDICATED Last Impressions Head CT 04/28/181736 Signed Impressions: CONCLUSION: 1. No acute intracranial abnormalities. Chest X-Ray 04/28/181736 Signed Impressions: CONCLUSION: Scarring at the left costophrenic angle. No active disease. Cervical Spine CT 04/28/18 [id number] Signed Impressions: CONCLUSION: 1. No acute findings. Moderate degenerative disc disease. I discussed the patient my attending physician. I have also discussed the patient with Dr. Harvey, email specialist covering for Dr. white. He recommends having [employer] come and interrogate the loop recorder. This was completed and no cardiac events were reported. I discussed the patient with Dr. Mercer, the patient's primary care provider. He request the patient be admitted observation with telemetry and a consult placed to Dr. white. Patient is in agreement with this plan of care. Diagnosis Primary Impression: Syncope Qualified Codes: R55 - Syncope and collapse Admitting Information Admitting Physician Requests: Observation Condition: Stable Isabel El Apr 28, 2018 17:26
[2018-04-28] MEDS ORDERED: SODIUM CHLORIDE 0.9% FLUSH 10 ML FLUSH IVF PRN (17:45)
[2018-04-28 18:00] VITALS: BP 129/61; PULSE 70; RESP 18; O2SAT 95
[2018-04-28] MEDS ORDERED: EMPA1TAB3 PO (18:07)
[2018-04-28] MEDS ORDERED: VENTAER INH (18:07)
--- NOTE | 2018-04-28 18:21 | RADRPT ---
EXAM DATE: 04/28/2018 5:48 PM EDT AGE/SEX: 73 years / Male INDICATIONS: Short of breath, weakness and dizziness. CLINICAL DATA: This is the patient's initial encounter. Patient reports that signs and symptoms have been present for 1 day and indicates a pain score of 0/10. MEDICAL/SURGICAL HISTORY: None. Appendectomy. Left lung biopsy. COMPARISON: [facility], CHEST PA & LAT, 02/01/2017. . FINDINGS: No acute infiltrate. Stable chronic blunting left costophrenic angle. Loop recorder overlies left hem ithorax. No acute bony abnormality. CONCLUSION: Scarring at the left costophrenic angle. No active disease. Electronically signed by: Anirudh Mcghee MD 04/28/2018 6:19 PM EDT
--- NOTE | 2018-04-28 18:30 | RADRPT ---
EXAM DATE: 04/28/2018 6:21 PM EDT AGE/SEX: 73 years / Male INDICATIONS: Dizziness. CLINICAL DATA: This is the patient's initial encounter. Patient reports that signs and symptoms have been present for 1 day and indicates a pain score of 0/10. MEDICAL/SURGICAL HISTORY: Congestive heart failure. Gastroesophageal reflux disease. Hyperten neptali. Diabetes, Renal cell carcinoma Nephrectomy, right. Cholecystectomy. RADIATION DOSE: 21.13 CTDI (mGy) COMPARISON: No prior exams available for comparison. TECHNIQUE: Contiguous axial images were obtained using helical multirow detector technique. The vol umetric data was post-processed with multiplanar reconstruction in oblique axial, sagittal, and coron al planes. Using automated exposure control and adjustment of the mA and/or kV according to patient s ize, radiation dose was kept as low as reasonably achievable to obtain optimal diagnostic quality filomena ges. DICOM format image data is available electronically for review and comparison. FINDINGS: There is no acute fracture or spondylolisthesis. No prevertebral soft tissue swelling. No significant bony canal stenosis. CONCLUSION: 1. No acute findings. Moderate degenerative disc disease. Electronically signed by: Anirudh Mcghee MD 04/28/2018 6:29 PM EDT
--- NOTE | 2018-04-28 18:32 | RADRPT ---
EXAM DATE: 04/28/2018 6:12 PM EDT AGE/SEX: 73 years / Male INDICATIONS: Dizziness. CLINICAL DATA: This is the patient's initial encounter. Patient reports that signs and symptoms have been present for 1 day and indicates a pain score of 0/10. MEDICAL/SURGICAL HISTORY: Congestive heart failure. Hypertension. Gastroesophageal reflux disease . Diabetes, Renal cell carcinoma Nephrectomy, right. RADIATION DOSE: 56.35 CTDI (mGy) COMPARISON: [facility], CT BRAIN W/O CONTRAST, 03/16/2016. . TECHNIQUE: CT of the head without contrast. Using automated exposure control and adjustment of the mA and/or kV according to patient size, radiation dose was kept as low as reasonably achievable to ob tain optimal diagnostic quality images. DICOM format image data is available electronically for revi ew and comparison. FINDINGS: Cerebrum: The ventricles are normal for age. No evidence of midline shift, mass lesion, hemorrhage or acute infarction. No extraaxial fluid collections are seen. Posterior Fossa: The cerebellum and brainstem are intact. The 4th ventricle is midline. The cerebe llopontine angle is unremarkable. Extracranial: The visualized portion of the orbits is intact. Skull: The calvaria is intact. No evidence of skull fracture. CONCLUSION: 1. No acute intracranial abnormalities. Electronically signed by: Anirudh Mcghee MD 04/28/2018 6:31 PM EDT
[2018-04-28 19:02] LABS: AUTOMATED NEUTROPHIL # 4.7 TH/MM3 (1.8-7.7); BASOPHIL % 0.5 % (0.0-2.0); EOSINOPHIL # 0.1 TH/MM3 (0-0.4); EOSINOPHIL % 1.3 % (0.0-4.0); HEMATOCRIT 38.8 % (39.0-51.0); HEMOGLOBIN 13.1 GM/DL (13.0-17.0); LYMPH % 20.1 % (9.0-44.0); LYMPHOCYTE # 1.4 TH/MM3 (1.0-4.8); MEAN CELL VOLUME 84.1 FL (80.0-100.0); MEAN CORPUSCULAR HEMOGLOBIN 28.3 PG (27.0-34.0); MEAN CORPUSCULAR HGB CONC 33.7 % (32.0-36.0); MEAN PLATELET VOLUME 9.1 FL (7.0-11.0); MONO % 8.8 % (0.0-8.0); MONOCYTE # 0.6 TH/MM3 (0-0.9); NEUT % 69.3 % (16.0-70.0); PLATELET COUNT 218 TH/MM3 (150-450); RED BLOOD COUNT 4.61 MIL/MM3 (4.50-5.90); RED CELL DISTRIBUTION WIDTH 13.8 % (11.6-17.2); WHITE BLOOD COUNT 6.8 TH/MM3 (4.0-11.0)
[2018-04-28 19:10] VITALS: BP 111/84; PULSE 73; RESP 17; O2SAT 98
[2018-04-28 19:13] LABS: INTERNATIONAL NORMALIZED RATIO 1.1 RATIO; PROTHROMBIN TIME - PATIENT 10.8 SEC (9.8-11.6)
[2018-04-28 19:25] LABS: ALBUMIN 4.1 GM/DL (3.4-5.0); AST (GOT) 22 U/L (15-37); BICARBONATE 25.6 MEQ/L (21.0-32.0); BLOOD UREA NITROGEN 25 MG/DL (7-18); CALCIUM 9.2 MG/DL (8.5-10.1); CHLORIDE 100 MEQ/L (98-107); CREATININE 1.82 MG/DL (0.60-1.30); GLOMERULAR FILTRATION RATE 36 ML/MIN (>89); GLUCOSE,RANDOM 149 MG/DL (74-106); MAGNESIUM 2.3 MG/DL (1.5-2.5); SODIUM (NA) 137 MEQ/L (136-145)
[2018-04-28 19:27] LABS: ALT (GPT) 28 U/L (12-78)
[2018-04-28 19:30] LABS: ALKALINE PHOSPHATASE 92 U/L (45-117); TOTAL BILIRUBIN ADULT 0.5 MG/DL (0.2-1.0); TOTAL PROTEIN 7.1 GM/DL (6.4-8.2); TROPONIN I LESS THAN 0.02 NG/ML (0.02-0.05)
[2018-04-28 20:19] LABS: BILIRUBIN, URINE NEG (NEG); BLOOD, URINE NEG (NEG); GLUCOSE,URINE >=500 mg/dL (NEG); KETONE, URINE NEG (NEG); NITRITE,URINE NEG (NEG); SQUAMOUS EPITHELIAL CELL URINE <1 /hpf (0-5); URINE COLOR YELLOW (YELLW/STRAW); URINE LEUKOCYTE ESTERASE NEG (NEG)
[2018-04-28] MEDS ORDERED: DEXTROSE 4 GM CHEW SCH (22:15)
[2018-04-28] MEDS ORDERED: SODIUM CHLORIDE 0.9% FLUSH 10 ML FLUSH IV FLUSH PRN (22:15)
[2018-04-28] MEDS ORDERED: NALOXONE HCL 0.4 MG/ML AMP IV PUSH PRN (22:15)
[2018-04-28] MEDS ORDERED: ALBUTEROL SULFATE 90 MCG/ACT HFA 8 GM INHALER INH PRN (22:15)
[2018-04-28] MEDS ORDERED: [UNRECOGNIZED DRUG - OTHER] CHEW SCH (22:15)
[2018-04-29] VITALS (7 sets, daily range): BP systolic 125–161; BP diastolic 62–71; PULSE 62–74; RESP 18; TEMP 97.5–98.2; O2SAT 94–96
[2018-04-29] MEDS: glipiZIDE 10 MG TAB PO SCH ×2 (06:35→17:12)
[2018-04-29 08:01] LABS: AUTOMATED NEUTROPHIL # 3.1 TH/MM3 (1.8-7.7); BASOPHIL % 0.8 % (0.0-2.0); EOSINOPHIL # 0.2 TH/MM3 (0-0.4); EOSINOPHIL % 2.8 % (0.0-4.0); HEMATOCRIT 38.4 % (39.0-51.0); HEMOGLOBIN 12.9 GM/DL (13.0-17.0); LYMPH % 35.3 % (9.0-44.0); LYMPHOCYTE # 2.2 TH/MM3 (1.0-4.8); MEAN CELL VOLUME 83.9 FL (80.0-100.0); MEAN CORPUSCULAR HEMOGLOBIN 28.3 PG (27.0-34.0); MEAN CORPUSCULAR HGB CONC 33.7 % (32.0-36.0); MEAN PLATELET VOLUME 8.7 FL (7.0-11.0); MONO % 10.1 % (0.0-8.0); MONOCYTE # 0.6 TH/MM3 (0-0.9); PLATELET COUNT 207 TH/MM3 (150-450); RED BLOOD COUNT 4.57 MIL/MM3 (4.50-5.90); WHITE BLOOD COUNT 6.1 TH/MM3 (4.0-11.0)
[2018-04-29 08:21] LABS: AST (GOT) 21 U/L (15-37); BICARBONATE 28.4 MEQ/L (21.0-32.0); BLOOD UREA NITROGEN 28 MG/DL (7-18); CALCIUM 8.8 MG/DL (8.5-10.1); CHLORIDE 103 MEQ/L (98-107); CREATININE 1.73 MG/DL (0.60-1.30); GLOMERULAR FILTRATION RATE 39 ML/MIN (>89); GLUCOSE,RANDOM 130 MG/DL (74-106); SODIUM (NA) 140 MEQ/L (136-145)
[2018-04-29 08:23] LABS: ALT (GPT) 27 U/L (12-78)
[2018-04-29 08:24] LABS: ALKALINE PHOSPHATASE 87 U/L (45-117); TOTAL BILIRUBIN ADULT 0.5 MG/DL (0.2-1.0); TOTAL PROTEIN 6.8 GM/DL (6.4-8.2)
[2018-04-29] MEDS ORDERED: ASPIRIN EC 81 MG TABEC PO SCH (09:00)
[2018-04-29] MEDS ORDERED: metFORMIN HCL 500 MG TAB PO SCH (09:00)
[2018-04-29] MEDS ORDERED: SODIUM CHLORIDE 0.9% FLUSH 10 ML FLUSH IV FLUSH SCH (09:00)
[2018-04-29] MEDS ORDERED: PANTOPRAZOLE SOD 20 MG DELAYED RELEASE TAB PO SCH (09:00)
[2018-04-29] MEDS ORDERED: FLUoxetine HCL 20 MG CAP PO SCH (09:00)
[2018-04-29] MEDS ORDERED: GABAPENTIN 300 MG CAP PO SCH (09:00)
[2018-04-29] MEDS ORDERED: GABAPENTIN 100 MG CAP PO SCH (09:00)
[2018-04-29] MEDS ORDERED: JARDIANCE 25 MG PO SCH (09:00)
[2018-04-29] MEDS ORDERED: FUROSEMIDE 40 MG TAB PO SCH (09:00)
--- NOTE | 2018-04-29 11:12 | HHI.HP ---
History of Present Illness Service [facility] Primary Care Physician Americo Mercer, DO Admission Diagnosis SYNCOPE; RECURRENT Diagnoses: (1) Chronic renal insufficiency Diagnosis: Secondary (2) Diabetes mellitus type 2, insulin dependent Diagnosis: Secondary (3) Syncope Diagnosis: Principal History of Present Illness 73-year-old male with history of CHF, hypertension, COPD, chronic kidney disease , diabetes, presented to the emergency department for evaluation following a syncopal episode. Patient states that he was walking in a store when his body begins to shake and he falls down and occasionally passes out. He was told after one occurrence that his lips had turned blue. There is no H/O seizures, nor has he been observed in these instances to have tonic clonic movements. He then wakes up on the ground. Yesterday he was assisted to the ground by people in the store. He states he had a very similar episode two days ago and in fact indicates they are occurring more frequently. He has been seen by Dr. Ramirez , wore a Holter monitor, and had a loop recorder placed 1 week ago. He tells me that he has been told to put the device over the loop recorder site when these events happen, however he has a difficult time doing this because he feels like he loses control over his body. Patient states he has no chest pain or palpitations preceding this. He reports no nausea or vomiting. He has no focal deficits or weakness. Review of Systems ROS Limitations: Hearing Impaired Constitutional: DENIES: Fever, Chills, Change in appetite Endocrine: DENIES: Heat/cold intolerance Eyes: DENIES: Blurred vision, Eye pain Ears, nose, mouth, throat: DENIES: Tinnitus, Hearing loss, Vertigo, Nasal discharge, Oral lesions, Throat pain, Hoarseness, Ear Pain, Running Nose, Epistaxis, Sinus Pain, Toothache, Odynophagia Respiratory: COMPLAINS OF: Cough Cardiovascular: COMPLAINS OF: Syncope Gastrointestinal: DENIES: Abdominal pain, Black stools, Bloody stools, Constipation, Diarrhea, Nausea, Vomiting, Difficulty Swallowing, Anorexia Genitourinary: DENIES: Sexual dysfunction, Urinary frequency, Urinary incontinence, Urgency, Hematuria, Dysuria, Nocturia, Penile Discharge, Testicular Pain, Testicular Swelling Musculoskeletal: DENIES: Joint pain, Muscle aches, Stiffness, Joint Swelling, Back pain, Neck pain Integumentary: DENIES: Abnormal pigmentation, Nail changes, Pruritus, Rash Hematologic/lymphatic: DENIES: Bruising, Lymphadenopathy Immunologic/allergic: DENIES: Eczema, Urticaria Neurologic: DENIES: Abnormal gait, Headache, Localized weakness, Paresthesias, Seizures, Speech Problems, Tremor, Poor Balance Psychiatric: DENIES: Anxiety, Confusion, Mood changes, Depression, Hallucinations, Agitation, Suicidal Ideation, Homicidal Ideation, Delusions Past Family Social History Allergies: Coded Allergies: promethazine (Unverified Allergy, Severe, "CODED", 04/28/18) oxycodone (Unverified Adverse Reaction, Severe, CONFUSION, 04/28/18) morphine (Unverified Adverse Reaction, Intermediate, NAUSEA, 04/28/18) Past Medical History He has Stage 3 CKD S/P right nephrectomy for RCC. He has long H/O cigs and COPD. He has DM, HTN, HPLD, and H/O distant CVA. Past Surgical History He is S/P avelina, right nephrectomy for RCC, Bilat cataract removal, lung surgery for excision of "nodules" and a distant H/O lumbar spine surgery. Reported Medications Current Medications Medications (Trade) Dose Ordered Sig/El Route Start Time Stop Time Status Last Admin (NS Flush) 2 ml UNSCH PRN IVF 04/28/18 17:45 (Proair Hfa Inh) 2 puff Q6H PRN INH 04/28/18 22:15 (Elavil) 50 mg HS PO 04/29/18 21:00 (Norvasc) 10 mg DAILY PO 04/29/18 09:00 04/29/18 10:22 (Ecotrin Ec) 81 mg DAILY PO 04/29/18 09:00 04/29/18 10:22 (Lipitor) 80 mg HS PO 04/29/18 21:00 (PROzac) 40 mg DAILY PO 04/29/18 09:00 04/29/18 10:21 (Lasix) 40 mg DAILY PO 04/29/18 09:00 04/29/18 10:22 (Neurontin) 100 mg BID PO 04/29/18 09:00 04/29/18 10:21 (Neurontin) 600 mg BID PO 04/29/18 09:00 04/29/18 10:21 (Glucotrol) 10 mg BIDAC PO 04/29/18 07:00 04/29/18 06:35 (Glucophage) 1,000 mg DAILY PO 04/29/18 09:00 04/29/18 10:21 (Flomax) 0.8 mg HS PO 04/29/18 21:00 Patient Own Medication PT OWN MED: JARDIA... DAILY PO 04/29/18 09:00 (Protonix) 20 mg DAILY PO 04/29/18 09:00 04/29/18 10:21 (NS Flush) 2 ml UNSCH PRN IV FLUSH 04/28/18 22:15 (NS Flush) 2 ml BID IV FLUSH 04/29/18 09:00 04/29/18 10:22 (Narcan Inj) 0.4 mg UNSCH PRN IV PUSH 04/28/18 22:15 Family History Noncontributory to this event. Social History Quit cigs in 1971 and ETOH in 1997. He denies recreational drug use. Physical Exam Vital Signs Vital Signs Date Time Temp Pulse Resp B/P (MAP) Pulse Ox O2 Delivery O2 Flow Rate FiO2 04/29/18 08:16 67 04/29/18 08:05 97.5 68 18 125/65 (85) 94 04/29/18 03:18 98.0 62 18 137/65 (89) 96 04/29/18 00:15 98.2 74 18 161/71 (101) 95 04/28/18 23:35 04/28/18 19:11 74 17 98 Room Air 04/28/18 19:10 73 17 111/84 (93) 98 Room Air 04/28/18 18:00 70 18 129/61 (83) 95 Room Air 04/28/18 17:24 100 Room Air 04/28/18 17:23 98.7 75 18 143/69 (93) 98 Physical Exam GENERAL: This is a well-nourished, well-developed patient, lying flat in no apparent distress. SKIN: No rashes, ecchymoses or lesions. Cool and dry. HEAD: Atraumatic. Normocephalic. EYES: Pupils equal round and reactive. Extraocular motions intact. No scleral icterus. No injection or drainage. ENT: Nose without bleeding, purulent drainage or septal hematoma. Throat without erythema, tonsillar hypertrophy or exudate. Uvula midline. Airway patent. NECK: Trachea midline. No JVD or lymphadenopathy. Supple, nontender, no meningeal signs. CARDIOVASCULAR: Regular rate and rhythm without murmurs, gallops, or rubs. RESPIRATORY: Clear to auscultation. Breath sounds equal bilaterally. No wheezes , rales, or rhonchi. GASTROINTESTINAL: Abdomen soft, non-tender, nondistended. No hepato-splenomegaly , or palpable masses. No guarding. MUSCULOSKELETAL: Extremities without clubbing, cyanosis, or edema. No joint tenderness, effusion, or edema noted. No calf tenderness. Negative Homans sign bilaterally. NEUROLOGICAL: Awake and alert. Cranial nerves II through XII intact. Motor and sensory grossly within normal limits. Laboratory Laboratory Tests Test 04/28/18 17:25 04/28/18 19:50 04/29/18 07:00 White Blood Count 6.8 6.1 Red Blood Count 4.61 4.57 Hemoglobin 13.1 12.9 Hematocrit 38.8 38.4 Mean Corpuscular Volume 84.1 83.9 Mean Corpuscular Hemoglobin 28.3 28.3 Mean Corpuscular Hemoglobin Concent 33.7 33.7 Red Cell Distribution Width 13.8 14.0 Platelet Count 218 207 Mean Platelet Volume 9.1 8.7 Neutrophils (%) (Auto) 69.3 51.0 Lymphocytes (%) (Auto) 20.1 35.3 Monocytes (%) (Auto) 8.8 10.1 Eosinophils (%) (Auto) 1.3 2.8 Basophils (%) (Auto) 0.5 0.8 Neutrophils # (Auto) 4.7 3.1 Lymphocytes # (Auto) 1.4 2.2 Monocytes # (Auto) 0.6 0.6 Eosinophils # (Auto) 0.1 0.2 Basophils # (Auto) 0.0 0.0 CBC Comment DIFF FINAL DIFF FINAL Differential Comment Prothrombin Time 10.8 Prothromb Time International Ratio 1.1 Activated Partial Thromboplast Time 24.9 Blood Urea Nitrogen 25 28 Creatinine 1.82 1.73 Random Glucose 149 130 Total Protein 7.1 6.8 Albumin 4.1 4.0 Calcium Level 9.2 8.8 Magnesium Level 2.3 Alkaline Phosphatase 92 87 Aspartate Amino Transf (AST/SGOT) 22 21 Alanine Aminotransferase (ALT/SGPT) 28 27 Total Bilirubin 0.5 0.5 Sodium Level 137 140 Potassium Level 3.7 3.7 Chloride Level 100 103 Carbon Dioxide Level 25.6 28.4 Anion Gap 11 9 Estimat Glomerular Filtration Rate 36 39 Total Creatine Kinase 120 Creatine Kinase MB 1.8 Troponin I LESS THAN 0.02 Urine Color YELLOW Urine Turbidity CLEAR Urine pH 6.0 Urine Specific [place] 1.008 Urine Protein NEG Urine Glucose (UA) >=500 Urine Ketones NEG Urine Occult Blood NEG Urine Nitrite NEG Urine Bilirubin NEG Urine Urobilinogen LESS THAN 2 Urine Leukocyte Esterase NEG Urine WBC LESS THAN 1 Urine Squamous Epithelial Cells <1 Microscopic Urinalysis Comment CULT NOT INDICATED Result Diagram: 04/29/18 0704/29/18 07 Imaging Last Impressions Head CT 04/28/181736 Signed Impressions: CONCLUSION: 1. No acute intracranial abnormalities. Chest X-Ray 04/28/181736 Signed Impressions: CONCLUSION: Scarring at the left costophrenic angle. No active disease. Cervical Spine CT 04/28/181736 Signed Impressions: CONCLUSION: 1. No acute findings. Moderate degenerative disc disease. Course Patient resting in ED holding on tele and with no complaints or episode since tele placed last night. Caprini VTE Risk Assessment Caprini VTE Risk Assessment: No/Low Risk (score <= 1) Caprini Risk Assessment Model Point Value = 1 Point Value = 2 Point Value = 3 Point Value = 5 Age 41-60 Minor surgery BMI > 25 kg/m2 Swollen legs Varicose veins or History of unexplained or recurrent spontaneous Oral contraceptives or hormone replacement Sepsis (< 1 month) Serious lung disease, including pneumonia (< 1 month) Abnormal pulmonary function Acute myocardial infarction Congestive heart failure (< 1 month) History of inflammatory bowel disease Medical patient at bed rest Age 61-74 Arthroscopic surgery Major open surgery (> 45 min) Laparoscopic surgery (> 45 min) Malignancy Confined to bed (> 72 hours) Immobilizing plaster cast Central venous access Age >= 75 History of VTE Family history of VTE Factor V Leiden Prothrombin [id number] Lupus anticoagulant Anticardiolipin antibodies Elevated serum homocysteine Heparin-induced thrombocytopenia Other congenital or acquired thrombophilia Stroke (< 1 month) Elective arthroplasty Hip, pelvis, or leg fracture Acute spinal cord injury (< 1 month) Prophylaxis Regimen Total Risk Factor Score Risk Level Prophylaxis Regimen 0-1 Low Early ambulation 2 Moderate Order ONE of the following: *Sequential Compression Device (SCD) *Heparin 5000 units SQ BID 3-4 Higher Order ONE of the following medications: *Heparin 5000 units SQ TID *Enoxaparin/Lovenox 40 mg SQ daily (WT < 150 kg, CrCl > 30 mL/min) *Enoxaparin/Lovenox 30 mg SQ daily (WT < 150 kg, CrCl > 10-29 mL/min) *Enoxaparin/Lovenox 30 mg SQ BID (WT < 150 kg, CrCl > 30 mL/min) AND/OR *Sequential Compression Device (SCD) 5 or more Highest Order ONE of the following medications: *Heparin 5000 units SQ TID (Preferred with Epidurals) *Enoxaparin/Lovenox 40 mg SQ daily (WT < 150 kg, CrCl > 30 mL/min) *Enoxaparin/Lovenox 30 mg SQ daily (WT < 150 kg, CrCl > 10-29 mL/min) *Enoxaparin/Lovenox 30 mg SQ BID (WT < 150 kg, CrCl > 30 mL/min) AND *Sequential Compression Device (SCD) Assessment and Plan Problem List: (1) Syncope ICD Codes: R55 - Syncope and collapse Status: Acute Plan: Will F/U tele and await Cards eval. (2) Chronic renal insufficiency ICD Codes: N18.9 - Chronic renal insufficiency Status: Chronic Plan: Renal function is stable S/P right nephrectomy. (3) Diabetes mellitus type 2, insulin dependent ICD Codes: E11.9 - Diabetes mellitus type 2, insulin dependent; Z79.4 - terminal supervisor (current) use of insulin Status: Chronic Plan: Cont home meds and monitor accuchecks AC and HS. Assessment and Plan Stable with no episodes of syncope since place on tele last night. Discussed Condition With Patient Discharge Planning Home Problem Qualifiers (1) Chronic renal insufficiency: Qualified Codes: N18.3 - Chronic kidney disease, stage 3 (moderate) (2) Syncope: Qualified Codes: R55 - Syncope and collapse Sherwin Hayden Apr 29, 2018 11:12
[2018-04-29 12:47] LABS: HEMOGLOBIN A1C 7.4 % (4.3-6.0)
--- NOTE | 2018-04-29 14:32 | EKG ---
Date Performed: 04/28/2018 Time Performed: 17:30:52 PTAGE: 73 years EKG: Sinus rhythm WITH FIRST DEGREE AV BLOCK INTRAVENTRICULAR CONDUCTION DELAY ABNORMAL ECG Compared to PREVIOUS TRACING , ST changes improved. PREVIOUS TRACIN09/21/2017 15.35.34 DOCTOR: Justo Parada Interpretating Date/Time 04/29/2018 14:31:52
--- NOTE | 2018-04-29 17:54 | MB ---
cc: Juan Oconnell MD, PhD DATE: 04/29/2018 REASON CHIEF COMPLAINT: Syncope. HISTORY OF PRESENT ILLNESS: This is a very pleasant 73-year-old man who has had several episodes of loss of consciousness. He states this usually occurs after he gets up out of the car and walks a few minutes. He gets lightheaded and loses consciousness. There is no tonic-clonic activity. No chest pain or palpitations. He is usually unconscious for a short period of time in a matter of seconds and then awakens fairly quickly. He states that he is not confused or disoriented. There has been no bladder incontinence. He currently has a loop recorder and by his client service coordinator. PAST MEDICAL HISTORY: He has a history of congestive heart failure, hypertension, COPD, chronic kidney disease, diabetes, right nephrectomy for renal cell carcinoma, cataract surgery, lung surgery for nodules, lumbar spine surgery. ALLERGIES: PROMETHAZINE, OXYCODONE, MORPHINE. CURRENT MEDICATIONS ARE: Elavil 50 mg daily, Lipitor 80 mg daily, Norvasc 10 mg daily, Flomax 0.8 mg daily, Ecotrin 81 mg daily, Prozac 40 mg daily, Lasix 40 mg daily, Neurontin 100 mg b.i.d. and 600 mg b.i.d., Glucophage 1000 mg daily, glipizide. PHYSICAL EXAMINATION: VITAL SIGNS: His blood pressure 161/71 supine, pulse is 74, respiratory rate is 18, temperature 98.2 degrees. NEUROLOGIC: Higher cortical functions are within normal limits. Cranial nerves 2-12 are normal. Motor exam: He has got normal strength and tone of all groups in both upper and lower extremities. There is skills. Normal reflexes and symmetric. IMAGING: CT of the brain is normal. CT cervical spine, mild degenerative disk disease. LABORATORY DATA: White count of 6100, hemoglobin 12.9, hematocrit 38%, platelet count 207,000. Sodium is 140, potassium 3.7, chloride 103, CO2 is 28, BUN is 28, creatinine 1.73, GFR 39, glucose 130. AST 21, ALT is 27. PT 10.8, INR 1.1, aPTT 24.9. Urinalysis pH is 6, specific gravity 1.008. IMPRESSION: Syncope by history. The history does not sound consistent with seizure or transient ischemic attack. I would wonder if he may have orthostatic hypotension. RECOMMENDATIONS: We will check orthostatic blood pressure and pulse. Also obtain a carotid ultrasound, echocardiogram and EEG. Juan Oconnell MD, PhD DARYL/ROSIBEL , 05:04 PM , 05:53 PM
[2018-04-29] MEDS ORDERED: ATORVASTATIN 80 MG TAB PO SCH (21:00)
[2018-04-29] MEDS ORDERED: TAMSULOSIN HCL 0.4 MG CAP PO SCH (21:00)
[2018-04-29] MEDS ORDERED: AMITRIPTYLINE HCL 50 MG TAB PO SCH (21:00)
== END 2018-04-29 19:38 | disposition left against medical advice (07) | DRG 312 ==
LOC: NEPC 17:07 → NEDA 21:37 → OBSVTOIN 22:14 → NEPHCDU 23:26 → N05A 04-29 15:48
PROVIDERS: ADMIT Family Medicine; ATTEND Family Medicine
DX: R55 Syncope and collapse (principal); E11.22 Type 2 diabetes mellitus with diabetic chronic kidney disease; I50.9 Heart failure, unspecified; I13.0 Hypertensive heart and chronic kidney disease with heart failure and stage 1 through stage 4 chronic kidney disease, or unspecified chronic kidney disease; N18.3 Chronic kidney disease, stage 3 (moderate); J44.9 Chronic obstructive pulmonary disease, unspecified; Z90.5 Acquired absence of kidney; Z85.528 Personal history of other malignant neoplasm of kidney; M19.90 Unspecified osteoarthritis, unspecified site; H91.93 Unspecified hearing loss, bilateral; K21.9 Gastro-esophageal reflux disease without esophagitis; Z87.891 Personal history of nicotine dependence; Z79.84 Long term (current) use of oral hypoglycemic drugs; Z86.73 Personal history of transient ischemic attack (TIA), and cerebral infarction without residual deficits; E78.00 Pure hypercholesterolemia, unspecified
CPT/HCPCS: 70450; 71045; 72125; 80053; 81001; 82550; 82552; 82948; 83036; 83735; 84484; 85025; 85610; 85730; 93005